=== PATIENT | female | born 1990 | race Hispanic/Latino ===

== ENCOUNTER 2018-10-22 19:31 | Emergency (ER) | payer BC, OTHER ==
[2018-10-22 19:57] LABS: APPEARANCE,URINE Clear (CLEAR); BILIRUBIN,URINE Negative (NEGATIVE); COLOR,URINE Yellow (YELLOW); GLUCOSE, URINE (UA) Negative (NEGATIVE); KETONES,URINE Negative (NEGATIVE); LEUKOCYTE ESTERASE ,URINE Negative (NEGATIVE); NITRATE,URINE Negative (NEGATIVE); OCCULT BLOOD,URINE Negative (NEGATIVE); PROTEIN,URINE Negative (NEGATIVE)
== END 2018-10-22 20:08 | disposition home or self-care (01) ==
LOC: EDH 19:31
DX: R05 Cough (principal); Z33.1 Pregnant state, incidental
CPT/HCPCS: 81003; 81025

== ENCOUNTER 2019-08-17 06:24 | Day surgery (SDC) | payer MEDICAID ==
[2019-08-16 11:31] VITALS: BP 147/76
[2019-08-16 11:57] LABS: BASOPHILS % (AUTO) 0.2 % (0.0-5.0); EOSINOPHILS % (AUTO) 2.5 % (0.0-8.0); HEMATOCRIT 38.1 % (36-48); LYMPHOCYTES % (AUTO) 27.2 % (21.0-51.0); MEAN CORPUSCULAR HEMOGLOBIN 27.4 pg (27.0-33.0); MEAN CORPUSCULAR HGB CONC 33.2 g/dL (32.0-36.0); MEAN CORPUSCULAR VOLUME 82.6 fL (79-99); MONOCYTES % (AUTO) 4.1 % (3.0-13.0); PLATELET COUNT (AUTO) 366 K/uL (130-400); RED BLOOD CELL COUNT(AUTO) 4.61 MIL/uL (4.00-5.50); RED CELL DISTRIBUTION WIDTH 16.3 % (11.0-15.5); WHITE BLOOD COUNT (AUTO) 10.4 K/uL (4.8-10.8)
[~2019-08-17] VITALS: Ht 160 cm; Wt 115.1 kg
[2019-08-17] VITALS (17 sets, daily range): BP systolic 118–148; BP diastolic 55–86
[~2019-08-17 06:24] MED LIST: ONDANSETRON HCL 4 MG/2 ML VIAL IVP PRN
[2019-08-17] MEDS: LACTATED RINGERS 1000ML 1,000 ML IV SCH ×2 (08:19→14:44)
[2019-08-17] MEDS ORDERED: PROPOFOL 10 MG/ML 20ML VIAL IV ONE (09:57)
[2019-08-17] MEDS ORDERED: ROCURONIUM 10MG/1ML SYR 10 MG/ML ML ONE ×2 (09:57→12:28)
[2019-08-17] MEDS ORDERED: LIDOCAINE PF 2% 5ML ABBOJECT ONE ×2 (09:57→12:59)
[2019-08-17] MEDS ORDERED: FENTANYL CITRATE PF 50 MCG/1 ML 2ML VIAL ONE ×2 (09:57→13:03)
[2019-08-17] MEDS ORDERED: SUCCINYLCHOLINE 200MG/10ML SYR ONE (09:57)
[2019-08-17] MEDS ORDERED: SUCCINYLCHOLINE CHLORIDE 20 MG/ML 10 ML VIAL ONE (10:00)
[2019-08-17] MEDS ORDERED: MIDAZOLAM HCL 1 MG/ML 2ML VIAL ONE (10:24)
[2019-08-17] MEDS ORDERED: GLYCOPYRROLATE 1 MG/5 ML SYRINGE ONE (12:57)
[2019-08-17] MEDS ORDERED: NEOSTIGMINE 5MG/5ML SYR IV ONE (12:57)
[2019-08-17] MEDS ORDERED: MEPERIDINE-PF 25 MG/ML SYG ONE ×4 (13:00→13:49)
[2019-08-17] MEDS ORDERED: ONDANSETRON HCL 4 MG/2 ML VIAL ONE (13:01)
== END 2019-08-17 15:00 | disposition home or self-care (01) ==
LOC: DAH 06:24
PROVIDERS: ATTEND Obstetrics & Gynecology
DX: D27.1 Benign neoplasm of left ovary (principal); K63.89 Other specified diseases of intestine; E66.01 Morbid (severe) obesity due to excess calories; Z68.42 Body mass index [BMI] 45.0-49.9, adult; Z82.49 Family history of ischemic heart disease and other diseases of the circulatory system; Z80.1 Family history of malignant neoplasm of trachea, bronchus and lung; Z98.890 Other specified postprocedural states
CPT/HCPCS: 36415; 58662; 84703; 85025; 86850; 86900; 86901; 88305; 88311; A4215 ×2; A4221; A4222; A4223; A4351; A4606; A4649 ×2; A4663; A4930; A6260; C1769 ×3; J0330; J2001 ×2; J2175 ×4; J2250; J2405; J2704; J2710; J3010 ×2; J3490; J7030; J7120

== ENCOUNTER 2024-09-23 15:55 | Emergency (ER) | payer BC, MEDICAID ==
[~2024-09-23] VITALS: Ht 157.5 cm; Wt 130.2 kg
[2024-09-23 16:25] LABS: BASOPHILS # (AUTO) 0.05 K/uL (0.00-0.20); BASOPHILS % (AUTO) 0.4 % (0.0-5.0); EOSINOPHILS # (AUTO) 0.18 K/uL (0.00-0.70); EOSINOPHILS % (AUTO) 1.5 % (0.0-8.0); HEMATOCRIT 35.3 % (36-48); IMMATURE GRANULOCYTE ABSOLUTE 0.05 K/uL (0-1); LYMPHOCYTES # (AUTO) 3.7 K/uL (1.0-4.8); LYMPHOCYTES % (AUTO) 30.5 % (21.0-51.0); MEAN CORPUSCULAR HEMOGLOBIN 26.4 pg (27.0-33.0); MEAN CORPUSCULAR HGB CONC 32.9 g/dL (32.0-36.0); MEAN CORPUSCULAR VOLUME 80.4 fL (79-99); MONOCYTES # (AUTO) 0.7 K/uL (0.1-1.0); MONOCYTES % (AUTO) 5.7 % (3.0-13.0); NEUTROPHILS # (AUTO) 7.4 K/uL (1.8-7.7); NEUTROPHILS % (AUTO) 61.5 % (40.0-77.0); PLATELET COUNT (AUTO) 385 K/uL (130-400); RED BLOOD CELL COUNT(AUTO) 4.39 MIL/uL (4.00-5.50); RED CELL DISTRIBUTION WIDTH 14.9 % (11.0-15.5); WHITE BLOOD COUNT (AUTO) 12.1 K/uL (4.8-10.8)
[2024-09-23 16:43] LABS: CREATININE 0.8 mg/dL (0.5-1.0); POTASSIUM 3.4 mmol/L (3.5-5.1)
[2024-09-23 17:16] LABS: APPEARANCE,URINE CLEAR (CLEAR); BILIRUBIN,URINE NEGATIVE (NEGATIVE); COLOR,URINE LIGHT-YELLOW (YELLOW); GLUCOSE, URINE (UA) NEGATIVE (NEGATIVE); KETONES,URINE NEGATIVE (NEGATIVE); LEUKOCYTE ESTERASE ,URINE NEGATIVE Leu/uL (NEGATIVE); NITRATE,URINE NEGATIVE (NEGATIVE); OCCULT BLOOD,URINE MODERATE (NEGATIVE); PH,URINE 6.5 (5.0-8.0); PROTEIN,URINE NEGATIVE (NEGATIVE); UROBILINOGEN,URINE 0.2 mg/dL (0.2-1.0)
[2024-09-23 17:20] LABS: ADD UA MICROSCOPIC YES
[2024-09-23 17:23] LABS: AMPHET/METH SCREEN,URINE NEGATIVE (NEGATIVE); BARBITURATE SCREEN, URINE NEGATIVE (NEGATIVE); BENZODIAZEPINES SCREEN,URINE NEGATIVE (NEGATIVE); CANNABINOID SCREEN,URINE NEGATIVE (NEGATIVE); COCAINE SCREEN,URINE NEGATIVE (NEGATIVE); OPIATE SCREEN,URINE NEGATIVE (NEGATIVE); PHENCYCLIDINE SCREEN,URINE NEGATIVE (NEGATIVE)
[2024-09-23 17:24] LABS: BACTERIA,URINE RARE /HPF (None Seen); MUCUS,URINE RARE LPF (None Seen); SQUAMOUS EPITHELIAL CELL,UR FEW /HPF (0-2); WBC,URINE 0-1 /HPF (0-1)
[2024-09-23 18:35] VITALS: BP 150/89; PULSE 102; RESP 16; TEMP 98.2; O2SAT 99
[2024-09-23] MEDS ORDERED: cefTRIAXone 1G VIAL IVPB ONE (19:00)
== END 2024-09-23 18:34 | disposition home or self-care (01) ==
LOC: EDH 15:55
DX: R00.2 Palpitations (principal); I10 Essential (primary) hypertension; Z90.89 Acquired absence of other organs; Z87.42 Personal history of other diseases of the female genital tract
CPT/HCPCS: 36415; 71045; 80048; 80305; 81001; 84484; 84703; 85025; 93005

== ENCOUNTER 2024-11-15 10:08 | Emergency (ER) | payer BC ==
[~2024-11-15] VITALS: Ht 157.5 cm; Wt 131.5 kg
[2024-11-15] MEDS ORDERED: FAMC500T8 PO (10:43)
[2024-11-15] MEDS ORDERED: IBUP-2077 PO (10:43)
[2024-11-15] MEDS ORDERED: ACYC30OI2 TP (10:43)
--- NOTE | 2024-11-15 10:43 | ERN ---
ED Note History of Present Illness Stated Complaint: RASH TO LOWER ABD, BUTTOCKS Chief Complaint: Skin Rash/Abscess Time Seen by MD: 10:11 Dictation: PATIENT IS A 34-YEAR-OLD FEMALE HERE WITH A PAINFUL RASH THAT STARTS TO HER LEFT GLUTEUS AND RADIATES AROUND TO THE LEFT THIGH ONSET TWO DAYS AGO. NO FEVER NO CHILLS NO NAUSEA VOMITING. SHE HAS NOT BEEN TO SEE YOUR PRIMARY CARE DOCTOR Allergies: Coded Allergies: No Known Drug Allergies (Unverified Allergy, Unknown, 08/16/19) Home Meds Active Scripts Ibuprofen (Ibuprofen 800 mg Tab) 800 Mg Tab, 800 MG PO Q8H PRN for fever or pain, #30 TAB 0 Refills Prov:CORINNE SNIDER NP 11/15/24 Acyclovir (Zovirax) 5 % Oint, 30 GM TP AD for 7 Days, #60 GM APPLY SMALL AMOUNT TO RASH EVERY4 HOURS WHILE AWAKE FOR THE NEXT FIVE DAYS. GOOD HAND WASHING AFTER TREATMENT Prov:CORINNE SNIDER NP 11/15/24 Famciclovir (Famciclovir) 500 Mg Tablet, 500 MG PO TID for 7 Days, #21 TAB Prov:CORINNE SNIDER NP 11/15/24 Past Medical History Past Medical History: Hypertension Surgical History: Tonsillectomy, Other Surgical History Other: OVARIAN CYST REMOVAL History: Not Applicable LMP: Oct 28, 2024 RN Note Reviewed/Agreed w/PFSH: Yes Review of System Dictation CONSTITUTIONAL: NEGATIVE EXCEPT FOR HPI HEAD/FACE: NEGATIVE EXCEPT FOR HPI EENT: NEGATIVE EXCEPT FOR HPI RESPIRATORY: NEGATIVE EXCEPT FOR HPI GASTROINTESTINAL/ABDOMINAL: NEGATIVE EXCEPT FOR HPI GENITOURINARY: NEGATIVE EXCEPT FOR HPI MUSCULOSKELETAL: NEGATIVE EXCEPT FOR HPI INTEGUMENTARY: NEGATIVE EXCEPT FOR HPI PAINFUL RASH LEFT GLUTEUS NEUROLOGICAL/PSYCH: NEGATIVE EXCEPT FOR HPI HEMATOLOGIC/LYMPHATIC: NEGATIVE EXCEPT FOR HPI ALL SYSTEMS NEGATIVE, EXCEPT NOTED ABOVE. 13 POINT REVIEW OF SYSTEMS ASSESSED AND ALL NEGATIVE EXCEPT FOR ABOVE. Initial Vital Sign VS Vital Signs Date Time Temp Pulse Resp B/P (MAP) Pulse Ox O2 Delivery O2 Flow Rate FiO2 11/15/24 10:10 98.2 83 16 134/80 98 Room Air 0 11/15/24 10:59 21 Physical Exam Dictation VITAL SIGNS REVIEWED ELIAS MORALEZ IN ROOM WITH THE EXAM GENERAL APPEARANCE: ALERT, ORIENTED X 3, MODERATE ACUTE DISTRESS, WELL DEVELOPED, NOURISHED. HEAD AND FACE: NON-TRAUMATIC. EYES: PERRL, PINK CONJUNCTIVAS, EYELID NO TRAUMA, ANTERIOR CHAMBER WITH ARCUS SENILIS. EARS: PINNAS INTACT AND NO SIGNS OF TRAUMA OR ERYTHEMA EAR CANALS CLEAR AND NO DISCHARGE TM NO ERYTHEMA NOSE: NO DISCHARGE, NO BLEEDING. OROPHARYNX: MOUTH NORMAL, TONGUE PINK, PHARYNX CLEAR,NO ERYTHEMA, TONSILS NO EXUDATES, NO ABSCESSES NOTED, MUCOUS MEMBRANE MOIST NECK: SUPPLE, NON-TENDER, NO THYROMEGALY, NO MASSES, NO JVD, NO BRUITS BREAST:DEFERRED CHEST:NO TENDERNESS, NO CREPITUS, NO PARADOXICAL MOVEMENT, NO RETRACTIONS LUNGS:CLEAR, WELL-VENTILATED, SYMMETRIC, NO RALES, NO WHEEZING, NO RHONCHI, NO STRIDOR, GOOD BREATH SOUNDS BILATERALLY HEART: REGULAR RATE, REGULAR RHYTHM, NO MURMUR, NO GALLOPS VASCULAR: NO PERIPHERAL EDEMA, ABDOMEN: SOFT, POSITIVE BOWEL SOUNDS, NONDISTENDED, NO GUARDING, NONTENDER, NO REBOUND, NO MASSES NO HEPATOMEGALY, NO SPLENOMEGALY, NO BRIDGES'S SIGN, NO HERNIAS. RECTAL: DEFERRED GENITAL: DEFERRED NEUROLOGICAL: NORMAL SPEECH, MOTOR FUNCTION INTACT, SENSORY FUNCTION INTACT MUSCULOSKELETAL: NECK NONTENDER, FULL RANGE OF MOTION, BACK NONTENDER, FULL RANGE OF MOTION, EXTREMITIES: NONTENDER, FULL RANGE OF MOTION SKIN: COLOR PINK, DRY CONFLUENT VESICULAR RASH TO LEFT GLUTEUS INFERIORLY THAT RADIATES AROUND TO LEFT THIGH DOES NOT CROSS MIDLINE LYMPHATIC: DEFERRED Results (Laboratory/Radiology) Labs Reviewed?: Yes ED Course ED Course Orders Procedure Category Date Status Time Acetaminophen With PHA 11/15/24 Complete Codeine (Tylenol-Code 11:00 Current Medications Medications (Trade) Dose Ordered Sig/Su Route PRN Reason Start Time Stop Time Status Last Admin Dose Admin Acetaminophen/ Codeine Phosphate (TYLenol-coDEINE TAB) 2 tab ONCE ONCE PO 11/15/24 11:00 11/15/24 11:01 DC 11/15/24 11:02 Vital Signs Date Time Temp Pulse Resp B/P (MAP) Pulse Ox O2 Delivery O2 Flow Rate FiO2 11/15/24 10:59 98.2 80 16 131/79 98 Room Air* 0 21 11/15/24 10:10 98.2 83 16 134/80 98 Room Air 0 TEN 40, NO LABS OR IMAGING INDICATED PATIENT WILL BE TREATED EMPIRICALLY FOR SHINGLES Medical Decision Making MDM MEDICAL DECISION-MAKING BASED ON PHYSICAL EXAMINATION AND EMPIRIC TREATMENT FOR SHINGLES. PATIENT GIVEN TYLENOL WITH CODEINE FOR SEVERE PAIN CURRENTLY DISCHARGED HOME WITH FAMCICLOVIR AND ACYCLOVIR OINTMENT GIVEN INSTRUCTIONS TO KEEP COVERED UNTIL CRUSTED OVER AND SEE HER PRIMARY CARE DOCTOR. GOOD HAND WASHING WITH TREAT DX & DISP Disposition: Discharge Departure Impression: Primary Impression: Shingles Condition: Stable Scripts Ibuprofen (Ibuprofen 800 mg Tab) 800 Mg Tab 800 MG PO Q8H PRN for fever or pain, #30 TAB 0 Refills Prov: CORINNE SNIDER NP 11/15/24 Acyclovir (Zovirax) 5 % Oint 30 GM TP AD for 7 Days, #60 GM APPLY SMALL AMOUNT TO RASH EVERY4 HOURS WHILE AWAKE FOR THE NEXT FIVE DAYS. GOOD HAND WASHING AFTER TREATMENT Prov: CORINNE SNIDER NP 11/15/24 Famciclovir (Famciclovir) 500 Mg Tablet 500 MG PO TID for 7 Days, #21 TAB Prov: CORINNE SNIDER NP 11/15/24 Additional Instructions: FOLLOW-UP WITH PRIMARY CARE PROVIDER IN 1 TO 2 DAYS. TAKE MEDICATIONS DIRECTED HERE IN THE EMERGENCY ROOM. OKAY TO CONTINUE HOME MEDICATIONS UNLESS OTHERWISE DISCUSSED DURING YOUR VISIT IN THE EMERGENCY ROOM TODAY. RETURN TO YOUR NEAREST EMERGENCY ROOM IF SYMPTOMS WORSEN OR IF THERE IS NO IMPROVEMENT. CALL 911 IF YOU NEED IMMEDIATE ASSISTANCE. TAKE TYLENOL OR MOTRIN [id number] NEEDED AND IF NO CONTRAINDICATIONS ARE PRESENT. INCREASE ORAL HYDRATION. A WOUND CULTURE OR URINE CULTURE WAS ORDERED HERE IN THE EMERGENCY ROOM DEPARTMENT PLEASE FOLLOW-UP WITH PRIMARY CARE PROVIDER AND ADVISE THEM TO GET REPEAT PORTS FROM OUR FACILITY. IF YOU HAD ANY NASIR WRAP/SPLINTS THAT WERE APPLIED HERE, PLEASE DO NOT REMOVE THEM UNTIL YOU SEE YOUR PRIMARY CARE OR SPECIALTY. TAKE ANTIVIRAL MEDICATION DIRECTED UNTIL GONE. GOOD HAND WASHING AFTER APPLYING CREAM TO YOUR RASH AND KEEP RASH COVERED UNTIL IT IS CRUSTED OVER. FOLLOW UP WITH YOUR PRIMARY CARE DOCTOR. Referrals: ROSEMARY SPARKS (PCP) Time of Disposition: 10:41 I have reviewed the case, and I agree with, Diagnosis and Plan I performed this substantive portion of this visit. I have reviewed and personally made and approve the management plan that is documented in the note by myself or the EDWIN. I acknowledge full responsibility for the patient's management plan. CORINNE SNIDER NP Nov 15, 2024 10:43 YAYA COFFMAN MD Nov 15, 2024 18:17
[2024-11-15 10:59] VITALS: BP 131/79; PULSE 80; RESP 16; TEMP 98.2; O2SAT 98
[2024-11-15] MEDS: acetaMINOPHEN WITH coDEINE 1 TAB TAB PO ONE (11:02)
== END 2024-11-15 11:25 | disposition home or self-care (01) ==
LOC: EDH 10:08
DX: B02.9 Zoster without complications (principal); I10 Essential (primary) hypertension; Z79.624 Long term (current) use of inhibitors of nucleotide synthesis; Z90.89 Acquired absence of other organs; Z98.890 Other specified postprocedural states
CPT/HCPCS: 99283